=== PATIENT | female | born 2000 ===

== ENCOUNTER 2024-09-26 11:03 | Outpatient (CLI) | payer OTHER, SELFPAY | END 2024-09-26 11:04 | disposition home or self-care (01) | PROVIDERS: Visit Provider Physician Assistant | DX: R53.83 Other fatigue (principal) | CPT/HCPCS: 84443 ==

== ENCOUNTER 2024-10-11 08:15 | Outpatient (CLI) | payer OTHER, SELFPAY | END 2024-10-11 08:16 | disposition home or self-care (01) | LOC: LKVREF 08:16 | PROVIDERS: Visit Provider Emergency Medicine | DX: R53.83 Other fatigue (principal); R11.0 Nausea | CPT/HCPCS: 84703 ==